=== PATIENT | male | born 1965 | race Caucasian/White ===

== ENCOUNTER 2016-09-12 09:34 | Emergency (ER) | payer BC ==
[~2016-09-12] VITALS: Ht 195.6 cm; Wt 152.3 kg
[~2016-09-12 09:34] MED LIST: ANTIVERT 25MG25 MG PO; PAXIL20 MG PO; VALIUM5 MG PO
[2016-09-12 10:01] VITALS: TEMP 97.5
[2016-09-12] MEDS ORDERED: HCTZ 25MG TAB25 MG PO (10:06)
[2016-09-12] MEDS ORDERED: ASPIRIN 81M81 MG/TA2 PO (10:06)
[2016-09-12 10:07] LABS: BASO # 0.1 (0.0-0.2); BASO % 0.5 % (0.0-2.0); EOS # 0.1 (0.0-0.7); EOS % 0.8 % (0-4.0); GRAN # 5.1 (1.4-6.5); GRAN % 54.8 % (42.2-75.2); HEMATOCRIT 49.3 % (42.0-52.0); HEMOGLOBIN 17.3 g/dl (13.5-18.0); LYMPH # 2.9 (1.2-3.4); LYMPH % 31.1 % (20.0-51.0); MEAN CELL VOLUME 91 fl (80.0-100.0); MEAN CORPUSCULAR HEMOGLOBIN 32 pg (27.0-31.0); MEAN CORPUSCULAR HGB CONC 35 g/dl (33.0-37.0); MEAN PLATELET VOLUME 9.7 fl (7.4-10.4); MONO # 1.2 (0.1-0.6); MONO % 12.4 % (1.7-9.3); PLATELET COUNT 233 K/mm3 (130-400); WHITE BLOOD COUNT 9.3 K/mm3 (4.8-10.8)
[2016-09-12] MEDS ORDERED: TOPROL XL100 MG PO (10:07)
[2016-09-12 10:18] LABS: ADJUSTED CALCIUM 8.7 mg/dL (8.4-10.2); ALBUMIN 4.1 gm/dL (3.5-5.0); BILIRUBIN,TOTAL 0.7 mg/dL (0.0-1.0); CALCIUM 8.8 mg/dL (8.4-10.2); CREATININE, serum 1.08 mg/dL (0.66-1.25); POTASSIUM 3.3 mmol/L (3.4-5.0); TOTAL PROTEIN 7.1 gm/dL (6.4-8.2)
[2016-09-12 10:29] LABS: TROPONIN-I 0.024 ng/mL (0.000-0.034)
[2016-09-12 10:50] VITALS: BP 143/89; PULSE 86
== END 2016-09-12 10:25 | disposition short-term general hospital (02) ==
LOC: COL.ER 09:34
PROVIDERS: Emergency Medicine
DX: T25.221A Burn of second degree of right foot, initial encounter (principal); T25.222A Burn of second degree of left foot, initial encounter; T25.232A Burn of second degree of left toe(s) (nail), initial encounter; T22.212A Burn of second degree of left forearm, initial encounter; T22.232A Burn of second degree of left upper arm, initial encounter; T23.271A Burn of second degree of right wrist, initial encounter; T23.231A Burn of second degree of multiple right fingers (nail), not including thumb, initial encounter; T23.251A Burn of second degree of right palm, initial encounter; T31.0 Burns involving less than 10% of body surface; W85.XXXA Exposure to electric transmission lines, initial encounter; Y92.73 Farm field as the place of occurrence of the external cause; I10 Essential (primary) hypertension; F41.9 Anxiety disorder, unspecified
CPT/HCPCS: J1170; J7030

== ENCOUNTER → 2017-08-21 | Outpatient (CLI) | payer BC ==
[~2017-08-21] MED LIST changes: +ASPIRIN 81M81 MG/TA2 PO; +HCTZ 25MG TAB25 MG PO; +TOPROL XL100 MG PO
== END ==
LOC: COL.RAD 07:15
DX: D17.0 Benign lipomatous neoplasm of skin and subcutaneous tissue of head, face and neck (principal)